=== PATIENT | female | born 1935 ===

== ENCOUNTER 2022-04-19 08:16 | Inpatient (IN) | payer MEDICARE, OTHER ==
[2022-04-19 09:31] LABS: Glucose,Whole Blood 125 mg/dL (70-110)
[2022-04-19] MEDS ORDERED: IPRATROPIUM-ALBUTEROL 3 ML NEB INHALATION PRN (09:35)
[2022-04-19] MEDS ORDERED: NALOXONE 0.4 MG/ML 1 ML VIAL IV PRN (09:36)
[2022-04-19] MEDS ORDERED: SODIUM CHLORIDE 0.9% 1,000 ML IV ONE (09:40)
[2022-04-19] MEDS ORDERED: CISATRACURIUM 2 MG/ML 5 ML VIAL IV ONE ×2 (09:43→09:44)
[2022-04-19] MEDS ORDERED: propofoL 100 ML IV ONE (09:44)
[2022-04-19] MEDS ORDERED: CHLORHEXIDINE GLUCONATE 15 ML CUP MUCOUS MEM SCH (09:45)
[2022-04-19] MEDS ORDERED: LACTATED RINGERS 1,000 ML IV SCH (10:00)
[2022-04-19] MEDS ORDERED: DILTIAZEM DRIP BOLUS FROM BAG 1 MG SOLN IV ONE (10:09)
[2022-04-19] MEDS ORDERED: DILTIAZEM 125 MG in SODIUM CHLORIDE 0.9% 100 ML IV SCH (10:15)
[2022-04-19 10:22] LABS: ABG Base Excess -5.6 mmol/L; ABG HCO3 18 mmol/L (21-25); ABG PCO2 31 mmHg (35-45); ABG PH 7.39 (7.35-7.45); Allen Test Performed? Yes
[2022-04-19 10:32] LABS: ABG PO2 >420 mmHg (83-108)
[2022-04-19 10:44] LABS: Basophils % (A) 0 %; Eosinophils % (A) 0 %; HCT 32.4 % (34.0-46.0); HGB 10.1 gm/dL (11.4-16.0); Hypochromasia Slight; Lymphocytes # (A) 0.7 k/uL (1.0-4.8); Lymphocytes % (A) 7 %; MCH 28.7 pg (25.0-35.0); MCV 92.6 fL (80.0-100.0); Mean Platelet Volume 12.1; Monocytes # (A) 0.8 k/uL (0-1.0); Monocytes % (A) 9 %; Neutrophils # (A) 7.2 k/uL (1.3-7.7); Neutrophils % (A) 80 %; Platelet Count 146 k/uL (150-450); RDW 15.6 % (11.5-15.5); WBC 8.9 k/uL (3.8-10.6)
[2022-04-19 10:51] LABS: Albumin 2.3 g/dL (3.5-5.0); Magnesium 1.4 mg/dL (1.6-2.3); Phosphorus 3.7 mg/dL (2.5-4.5); Potassium 2.9 mmol/L (3.5-5.1); Total Bilirubin 1.1 mg/dL (0.2-1.3); Total Protein 4.2 g/dL (6.3-8.2)
--- NOTE | 2022-04-19 10:52 | XR ---
EXAMINATION TYPE: XR chest 1V portable DATE OF EXAM: 04/19/2022 COMPARISON: NONE HISTORY: Tube placement TECHNIQUE: Single frontal view of the chest is obtained. FINDINGS: There is no focal air space opacity, pleural effusion, or pneumothorax seen. The cardiac silhouette size is within normal limits. The osseous structures are intact. Some large and there is hyperinflation. Postoperative changes. Atherosclerotic change aorta. Diffuse osteopenia. Left-sided central line seen with the tip overlying the SVC. ET tube 5.5 cm above frank. NG tube courses in the left upper quadrant. IMPRESSION: 1. COPD. 2. Cardiomegaly. 3. ET tube 5.5 cm above frank.
--- NOTE | 2022-04-19 10:58 | PCN ---
PROCEDURE NOTE PROCEDURE: Right femoral art line. PREOPERATIVE DIAGNOSES: Hypotension, frequent blood draws, and blood gas monitoring. POSTOPERATIVE DIAGNOSES: Hypotension, frequent blood draws, and blood gas monitoring. CO-SURGEONS: 1. Dr. Matthew. 2. Ruben Rodgers. ARTERIAL LINE PLACEMENT: Indications: Hemodynamic monitoring. A time-out was completed verifying correct patient, procedure, site, positioning, and implant(s) or special equipment if applicable. Marino's test was performed to ensure adequate perfusion. The patient's right groin was prepped and draped in sterile fashion. 1% Lidocaine was used to anesthetize the area. An 18G Arrow arterial line was introduced into the femoral artery. The catheter was threaded over the guide wire and the needle was removed with appropriate pulsatile blood return. Blood loss was minimal. The catheter was then sutured in place to the skin and a sterile dressing applied. Perfusion to the extremity distal to the point of catheter insertion was checked and found to be adequate. The patient tolerated the procedure well and there were no complications. There was no immediate complication. There was good blood return and waveform. The patient tolerated the procedure well. The catheter was sutured in place. The procedure was done at room 264. There was informed consent and universal timeout. MMODL / IJN: [id number] /
[2022-04-19 11:01] LABS: Appearance,Urine Cloudy (Clear); Bacteria,Urine Rare /hpf; Bilirubin,Urine Negative (Negative); Blood,Urine Large (Negative); Color,Urine Yellow; Glucose,Urine (UA) Trace (Negative); Ketones,Urine Trace (Negative); Leukocyte Esterase,Urine Negative (Negative); Nitrite,Urine Negative (Negative); Protein,Urine 2+ (Negative); RBC,Urine >182 /hpf (0-5); Specific Gravity,Urine 1.019 (1.001-1.035); Urobilinogen,Urine <2.0 mg/dL (<2.0); WBC,Urine 169 /hpf (0-5)
--- NOTE | 2022-04-19 11:12 | PCN ---
PROCEDURE NOTE This is a Pulmonary/Critical Care procedure note. PROCEDURE PERFORMED: Left subclavian triple-lumen catheter. PREOPERATIVE DIAGNOSES: Administration of fluids and pressors and hypotension. POSTOPERATIVE DIAGNOSES: Administration of fluids and pressors and hypotension. There were informed consent and universal time-out. OPERATORS: 1. Dr. Dial. 2. Dr. Matthew. 3. Ruben Rodgers, nurse practitioner. There was informed consent. The procedure took place in room 264. We used the left subclavian vein. TRIPLE LUMEN CATHETER PLACEMENT: Indication: Hemodynamic monitoring/intravenous access. A time-out was completed verifying correct patient, procedure, site, positioning, and implant(s) or special equipment if applicable. The patient was placed in a dependent position appropriate for triple lumen catheter placement based on the vein to be cannulated. The patient's left neck was prepped and draped in sterile fashion. 1% lidocaine was used to anesthetize the surrounding skin area. A triple lumen 9F Cordis catheter was introduced into the left subclavian vein using Seldinger technique. The catheter was threaded smoothly over the guide wire and appropriate blood return was obtained. Each lumen of the catheter was evacuated of air and flushed with sterile saline. The catheter was then sutured in place to the skin and a sterile dressing applied. Perfusion to the extremity distal to the point of catheter insertion was checked and found to be adequate. FINDINGS: There was good blood return from all 3 ports. The catheter was sutured into place. A sterile dressing was applied by the nurse. The patient tolerated the procedure well. The tip of the catheter was seen at the junction of the superior vena cava and right atrium. Chest x-ray was obviously ordered. There was no immediate complication. MMODL / IJN: [id number] /
[2022-04-19] MEDS ORDERED: Magnesium Replacement Protocol 1 EACH MISC MISCELLANE PRN (11:16)
[2022-04-19] MEDS ORDERED: Potassium Replacement Protocol 1 EACH MISC MISCELLANE PRN (11:16)
[2022-04-19] MEDS: MAGNESIUM SULFATE-D5W PMX 1 GM in DEXTROSE/WATER 1 100ML.BAG IVPB SCH ×3 (11:30→13:30)
[2022-04-19] MEDS: POTASSIUM CHLORIDE 20 MEQ in WATER FOR INJECTION 1 100ML.BAG IVPB SCH ×2 (11:30→13:30)
[2022-04-19] MEDS ORDERED: ALBUTEROL HFA INHALER INHALATION PRN (11:49)
[2022-04-19] MEDS ORDERED: IPRATROPIUM-ALBUTEROL 3 ML NEB INHALATION SCH (12:00)
[2022-04-19] MEDS ORDERED: ALBUTEROL HFA INHALER INHALATION SCH (12:00)
[2022-04-19] MEDS ORDERED: ARTIFICIAL TEARS-HYPROMELLOSE DROPS 15 ML BTL BOTH EYES PRN (12:36)
--- NOTE | 2022-04-19 12:50 | P.CNPUL ---
History of Present Illness Consult date: 04/19/22 Requesting physician: Domenico Cervantes Reason for consult: dyspnea, hypoxemia, other Chief complaint: Cardiopulmonary arrest. History of present illness: Pulmonary/critical care consult dated 04/19/2022. 86-year-old female who was transferred from the ICU/ER at [facility], to our ICU, for additional critical care management. The patient was admitted to [facility] on April 17 with weakness, and was found to have coronavirus infection. Apparently this morning, the patient became unresponsive, after being given a pill which she may have aspirated on. Initially, she was nancy cardic with heart rate in the 40s and very cyanotic and poorly responsive. Sometime after that she was intubated, and then developed cardiopulmonary arrest. She had CPR for about 6 minutes before there was return of spontaneous circulation. She received a couple liters of fluid, and 3 rounds of e pinephrine. I don't believe she was ever cardioverted or defibrillated. The patient was stabilized there and transferred to our facility. In our facility, a central line and arterial line were placed. Chest x-ray showed cardiomegaly, and an endotracheal tube which was high in the trachea, and was pushed down 2 cm. Current lab data includes a white count of 8.9, hemoglobin 10.1, hematocrit 32.4, and a platelet count of 146,000. Blood gases showed a pO2 that was greater than 420, a pCO2 that was 31, and a pH is 7.39. Sodium 145, potassium 2.9, chlorides 1:15, CO2 21, BUN 42, and creatinine 1.43. Calcium was 7. Troponin was 0.154. Albumin was 2.3. AST was 510 and ALT was 148. Urine was nitrite and leukocyte esterase negative. There was quite a few WBCs and rare bacteria. Urine was cloudy. Current medications are reviewed and included updrafts with albuterol and ipratropium bromide, Cardizem is 7.5 mg an hour, and the usual ICU orders. Review of Systems REVIEW OF SYSTEMS: A true review of systems cannot be obtained as the patient came from [facility], sedated and intubated. She apparently had a cardiopulmonary arrest at their facility. CONSTITUTIONAL: [Negative.] NEUROLOGIC: [ Negative.] HEENT: [ Negative.] CARDIAC: [Negative.] PULMONARY: [Negative.] GI: [Negative.] : [Negative.] RHEUMATOLOGIC: [ Negative.] IMMUNOLOGIC: [ Negative.] ENDOCRINE: [Negative. ] DERMATOLOGIC: [Negative.] Medications and Allergies Home Medications Medication Instructions Recorded Confirmed Type Apixaban [Eliquis] 2.5 mg PO BID 04/19/22 04/19/22 History Donepezil [Aricept] 10 mg PO HS 04/19/22 04/19/22 History Ergocalciferol [Vitamin D2 (1250 1,250 mcg PO Q7D 04/19/22 04/19/22 History Mcg = 53842 Iu)] Fenofibrate,Micronized 200 mg PO DAILY 04/19/22 04/19/22 History [Fenofibrate] Isosorbide Mononitrate ER [Imdur] 60 mg PO DAILY 04/19/22 04/19/22 History Levothyroxine Sodium [Levoxyl] 100 mcg PO DAILY 04/19/22 04/19/22 History Megestrol Acetate 400 mg PO DAILY 04/19/22 04/19/22 History Memantine HCl 10 mg PO BID 04/19/22 04/19/22 History Metoprolol Tartrate 25 mg PO BID 04/19/22 04/19/22 History Sertraline HCl [Zoloft] 50 mg PO DAILY 04/19/22 04/19/22 History Simvastatin [Zocor] 40 mg PO HS 04/19/22 04/19/22 History hydroCHLOROthiazide [Hydrodiuril] 50 mg PO DAILY 04/19/22 04/19/22 History Allergies Allergy/AdvReac Type Severity Reaction Status Date / Time aspirin [From Ecotrin] Allergy Unknown Verified 04/19/22 09:36 Sulfa (Sulfonamide Allergy Unknown Verified 04/19/22 09:36 Antibiotics) Physical Exam Osteopathic Statement: *. No significant issues noted on an osteopathic structural exam other than those noted in the History and Physical/Consult. Vitals: Vital Signs Temp Pulse Resp BP FiO2 04/19/22 11:54 30 04/19/22 10:45 112 H 18 120/71 04/19/22 10:40 97.6 F 130 H 18 117/84 04/19/22 10:33 35 04/19/22 09:39 100 04/19/22 09:20 100 Intake and Output 04/18/22 04/19/22 04/19/22 22:59 06:59 14:59 Intake Total 500 Balance 500 Intake: IV 500 Lactated Ringers 1,000 ml 300 @ 100 mls/hr IV .Q10H KUNAL Rx#:[id number] Magnesium Sulfate-D5w Pmx 100 1 gm In Dextrose/Water 1 100ml.bag @ 100 mls/hr IVPB Q1H KUNAL Rx#: [id number] Potassium Chloride 20 meq 100 In Water For Injection 1 100ml.bag @ 50 mls/hr IVPB Q2H KUNAL Rx#: [id number] Other: Weight 56.4 kg ABP, PAP, CO, CI - Last 8 Hours Arterial Blood Pressure 130/54 Arterial Blood Pressure 119/61 No acute distress, sedated, and intubated, with an orally placed endotracheal tube. HEENT examination is grossly unremarkable. Neck supple. Full range of motion. No adenopathy thyromegaly or neck vein distention. Cardiovascular examination reveals an irregular rhythm and rate. S1-S2 normal. No S3 or S4. No discernible murmur noted. Heart rate 112 bpm. Lungs reveal scattered rhonchi. Breath sounds equal bilaterally. No wheezes. Saturations are 98%. Abdomen soft, without bowel sounds. No masses. Extremities are intact. No clubbing. Acrocyanosis present. Minimal lower extremity edema. Skin is without rash or lesion. Neurologic examination cannot be evaluated at this time. Results - Laboratory Findings CBC and BMP: 04/19/22 10:00 04/19/22 10:00 ABG ABG pH 7.39 (7.35-7.45) 04/19/22 10:14 ABG pCO2 31 mmHg (35-45) L 04/19/22 10:14 ABG pO2 >420 mmHg (83-108) H 04/19/22 10:14 ABG O2 Saturation 100.0 % (94-97) H 04/19/22 10:14 Abnormal lab findings: Abnormal Labs 04/19/22 04/19/22 04/19/22 09:30 09:45 10:00 RBC Hgb Hct RDW Plt Count Lymphocytes # ABG pCO2 ABG pO2 ABG HCO3 ABG O2 Saturation Potassium 2.9 L Chloride 115 H Carbon Dioxide 21 L BUN 42 H Creatinine 1.43 H Glucose 137 H POC Glucose (mg/dL) 125 H Calcium 7.0 L Magnesium 1.4 L AST 510 H ALT 148 H Troponin I Total Protein 4.2 L Albumin 2.3 L Urine Appearance Cloudy H Urine Protein 2+ H Urine Glucose (UA) Trace H Urine Ketones Trace H Urine Blood Large H Urine RBC >182 H Urine WBC 169 H Urine Bacteria Rare H 04/19/22 04/19/22 04/19/22 10:00 10:00 10:14 RBC 3.50 L Hgb 10.1 L Hct 32.4 L RDW 15.6 H Plt Count 146 L Lymphocytes # 0.7 L ABG pCO2 31 L ABG pO2 >420 H ABG HCO3 18 L ABG O2 Saturation 100.0 H Potassium Chloride Carbon Dioxide BUN Creatinine Glucose POC Glucose (mg/dL) Calcium Magnesium AST ALT Troponin I 0.154 H* Total Protein Albumin Urine Appearance Urine Protein Urine Glucose (UA) Urine Ketones Urine Blood Urine RBC Urine WBC Urine Bacteria - Diagnostic Findings Chest x-ray: image reviewed Assessment and Plan Assessment: Acute cardiopulmonary arrest, requiring intubation and mechanical ventilation on 04/19/2022. 6 minutes of cardiopulmonary resuscitation, with eventual return of spontaneous circulation. Patient tested positive for coronavirus. History of hyperlipidemia. History of chronic atrial fibrillation. History of dementia. History of hypothyroidism. History of hypertension. Plan: Plan dated 04/19/2022. The patient had an arterial line placed, and a central line placed. Labs, x- rays, and medications are reviewed. We will continue to follow the patient and make recommendations along the way. The patient will be started on tube feedings. Labs and x-rays will be ordered for the morning. Adjustments to the mechanical ventilator have been made. We will continue to follow the patient make recommendations along the way. Prognosis is certainly guarded. Time with Patient: Greater than 30
[2022-04-19] MEDS ORDERED: NOREPINEPHRINE 4 MG in SODIUM CHLORIDE 0.9% 250 ML IV SCH (13:00)
[2022-04-19 13:06] VITALS: RESP 22
[2022-04-19 13:57] VITALS: BMI 24.3
[2022-04-19] MEDS ORDERED: MORPHINE SULFATE 2 MG/ML SYRINGE IV PRN (14:37)
[2022-04-19] MEDS ORDERED: LORazepam 2 MG/ML INJ IV PRN (14:37)
[2022-04-19] MEDS ORDERED: ATROPINE OPHTH SOLN 1% 5ML BTL SUBLINGUAL PRN (14:37)
[2022-04-19] MEDS ORDERED: MORPHINE SULFATE 10 MG/ML 1ML VIAL IVP ONE (14:37)
[2022-04-19] MEDS ORDERED: MORPHINE SULFATE 4 MG/ML SYRINGE IV PRN (14:37)
[2022-04-19] MEDS ORDERED: MORPHINE SULFATE (100 MG/2 ML) 100 MG in SODIUM CHLORIDE 0.9% 100 ML IV SCH (14:45)
--- NOTE | 2022-04-19 15:59 | P.HPIM ---
History of Present Illness H&P Date: 04/19/22 Chief Complaint: Short of breath This is a 86-year-old patient, follows Dr. Hammad Rodriguez. Chronic stable medical conditions include dementia, anemia, CAD, depression, hyperlipidemia, hypothyroid, B12 deficiency, coronary artery disease with history of bypass. Patient is brought into the [facility] and was there for last 2 days. for being short of breath and cough for last 2 days. Initially was put on 2 L of nasal cannula. Patient then came back positive for COVID. Computed tomography scan did show some cardiomegaly. 2-D echocardiogram showed EF of 40%. Subsequently patient was found to have atrial fibrillation with rapid ventricular rate. Had to be intubated. And transferred over. Initial troponin was less than 0.05 Patient admitted to the ICU here. Was accepted by Dr. Dial other church history teacher. FiO2 30% and a PEEP of 5. Current drips include Cardizem, propofol, epinephrine. Currently no family at the bedside. Review of systems: Patient intubated Past medical history to include: Dementia, anemia, CAD with bypass, depression, hyperlipidemia, hypothyroid, B12 deficiency, coronary bypass Physical examination: VITAL SIGNS: 97.6, 1:30, 18, 117 x 84, GENERAL: Average built, intubated. EYES: Pupils equal. Conjunctiva normal. HEENT: [External appearance of nose and ears normal, oral cavity-ET tube. NECK: JVD unable to assess masses not palpable. HEART: Heart sounds irregular; no edema. LUNGS: Respiratory rate increased decreased breath sounds. ABDOMEN: Soft, nontender, liver spleen not palpable, no masses palpable. PSYCH: Patient sedatedl. MUSCULOSKELETAL:No Clubbing/cyanosis;muscles-grossly intact. OA NEUROLOGICAL: Cranial nerves grossly intact; no facial asymmetry, power and sensation grossly intact. LYMPHATICS: No lymph nodes palpable in the axilla and neck INVESTIGATIONS, reviewed in the clinical context: Testing from [facility] EKG tracing personally reviewed by me-decreased T wavesTiffany fib Computed tomography scan of the chest: Cardiomegaly. Trace effusion. 2-D echocardiogram: EF 40%. Moderate to severe mitral and tricuspid regurgitation. Moderate pulmonary hypertension White count 7.4 hemoglobin 11.1 platelets 179 sodium 148 potassium 4.7 BUN 23 creatinine 1.8. 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 Drips include IV Cardizem, propofol, norepinephrine. Follow with intensiv ist. Prognosis guarded. Medications and Allergies Home Medications Medication Instructions Recorded Confirmed Type Apixaban [Eliquis] 2.5 mg PO BID 04/19/22 04/19/22 History Donepezil [Aricept] 10 mg PO HS 04/19/22 04/19/22 History Ergocalciferol [Vitamin D2 (1250 1,250 mcg PO Q7D 04/19/22 04/19/22 History Mcg = 17926 Iu)] Fenofibrate,Micronized 200 mg PO DAILY 04/19/22 04/19/22 History [Fenofibrate] Isosorbide Mononitrate ER [Imdur] 60 mg PO DAILY 04/19/22 04/19/22 History Levothyroxine Sodium [Levoxyl] 100 mcg PO DAILY 04/19/22 04/19/22 History Megestrol Acetate 400 mg PO DAILY 04/19/22 04/19/22 History Memantine HCl 10 mg PO BID 04/19/22 04/19/22 History Metoprolol Tartrate 25 mg PO BID 04/19/22 04/19/22 History Sertraline HCl [Zoloft] 50 mg PO DAILY 04/19/22 04/19/22 History Simvastatin [Zocor] 40 mg PO HS 04/19/22 04/19/22 History hydroCHLOROthiazide [Hydrodiuril] 50 mg PO DAILY 04/19/22 04/19/22 History Allergies Allergy/AdvReac Type Severity Reaction Status Date / Time aspirin [From Ecotrin] Allergy Unknown Verified 04/19/22 09:36 Sulfa (Sulfonamide Allergy Unknown Verified 04/19/22 09:36 Antibiotics) Physical Exam Vitals: Vital Signs Temp Pulse Resp BP Pulse Ox FiO2 04/19/22 13:00 101 H 103/66 93 L 04/19/22 12:45 110 H 65/43 92 L 04/19/22 12:30 108 H 97/68 92 L 04/19/22 12:15 123 H 22 85/61 92 L 04/19/22 12:00 97.6 F 122 H 22 89/48 92 L 30 04/19/22 11:54 30 04/19/22 11:45 23 94/69 92 L 04/19/22 11:30 124 H 21 91/63 92 L 04/19/22 11:15 123 H 18 116/86 92 L 04/19/22 11:00 72/49 04/19/22 10:45 112 H 18 120/71 04/19/22 10:40 97.6 F 130 H 18 117/84 04/19/22 10:33 35 04/19/22 09:39 100 04/19/22 09:20 100 Intake and Output 04/18/22 04/19/22 04/19/22 22:59 06:59 14:59 Intake Total 556.345 Balance 556.345 Intake: IV 550 Invasive Line 2 10 Invasive Line 3 20 Invasive Line 4 20 Lactated Ringers 1,000 ml 300 @ 100 mls/hr IV .Q10H KUNAL Rx#:[id number] Magnesium Sulfate-D5w Pmx 100 1 gm In Dextrose/Water 1 100ml.bag @ 100 mls/hr IVPB Q1H KUNAL Rx#: [id number] Potassium Chloride 20 meq 100 In Water For Injection 1 100ml.bag @ 50 mls/hr IVPB Q2H KUNAL Rx#: [id number] Intake, IV Titration 6.345 Amount propofoL 1,000 mg In 6.345 Empty Bag 1 bag @ 15 MCG/ KG/MIN 5.076 mls/hr IV . [id number] KUNAL Rx#:[id number] Other: Weight 56.4 kg ABP, PAP, CO, CI - Last 8 Hours Arterial Blood Pressure 109/55 Arterial Blood Pressure 95/51 Arterial Blood Pressure 103/54 Arterial Blood Pressure 104/54 Arterial Blood Pressure 91/46 Arterial Blood Pressure 100/49 Arterial Blood Pressure 107/46 Arterial Blood Pressure 108/50 Arterial Blood Pressure 130/54 Arterial Blood Pressure 119/61 Results CBC & Chem 7: 04/19/22 10:00 04/19/22 10:00 Labs: Abnormal Lab Results - Last 24 Hours (Table) 04/19/22 04/19/22 04/19/22 Range/Units 09:30 09:45 10:00 RBC (3.80-5.40) m/uL Hgb (11.4-16.0) gm/dL Hct (34.0-46.0) % RDW (11.5-15.5) % Plt Count (150-450) k/uL Lymphocytes # (1.0-4.8) k/uL ABG pCO2 (35-45) mmHg ABG pO2 (83-108) mmHg ABG HCO3 (21-25) mmol/L ABG O2 Saturation (94-97) % Potassium 2.9 L (3.5-5.1) mmol/L Chloride 115 H (98-107) mmol/L Carbon Dioxide 21 L (22-30) mmol/L BUN 42 H (7-17) mg/dL Creatinine 1.43 H (0.52-1.04) mg/dL Glucose 137 H (74-99) mg/dL POC Glucose (mg/dL) 125 H (70-110) mg/dL Calcium 7.0 L (8.4-10.2) mg/dL Magnesium 1.4 L (1.6-2.3) mg/dL AST 510 H (14-36) U/L ALT 148 H (4-34) U/L Troponin I (0.000-0.034) ng/mL Total Protein 4.2 L (6.3-8.2) g/dL Albumin 2.3 L (3.5-5.0) g/dL Urine Appearance Cloudy H (Clear) Urine Protein 2+ H (Negative) Urine Glucose (UA) Trace H (Negative) Urine Ketones Trace H (Negative) Urine Blood Large H (Negative) Urine RBC >182 H (0-5) /hpf Urine WBC 169 H (0-5) /hpf Urine Bacteria Rare H (None) /hpf 04/19/22 04/19/22 04/19/22 Range/Units 10:00 10:00 10:14 RBC 3.50 L (3.80-5.40) m/uL Hgb 10.1 L (11.4-16.0) gm/dL Hct 32.4 L (34.0-46.0) % RDW 15.6 H (11.5-15.5) % Plt Count 146 L (150-450) k/uL Lymphocytes # 0.7 L (1.0-4.8) k/uL ABG pCO2 31 L (35-45) mmHg ABG pO2 >420 H (83-108) mmHg ABG HCO3 18 L (21-25) mmol/L ABG O2 Saturation 100.0 H (94-97) % Potassium (3.5-5.1) mmol/L Chloride (98-107) mmol/L Carbon Dioxide (22-30) mmol/L BUN (7-17) mg/dL Creatinine (0.52-1.04) mg/dL Glucose (74-99) mg/dL POC Glucose (mg/dL) (70-110) mg/dL Calcium (8.4-10.2) mg/dL Magnesium (1.6-2.3) mg/dL AST (14-36) U/L ALT (4-34) U/L Troponin I 0.154 H* (0.000-0.034) ng/mL Total Protein (6.3-8.2) g/dL Albumin (3.5-5.0) g/dL Urine Appearance (Clear) Urine Protein (Negative) Urine Glucose (UA) (Negative) Urine Ketones (Negative) Urine Blood (Negative) Urine RBC (0-5) /hpf Urine WBC (0-5) /hpf Urine Bacteria (None) /hpf
[2022-04-19 16:32] VITALS: BP 84/70; PULSE 112; TEMP 98.9
--- NOTE | 2022-04-19 20:31 | P.DS ---
Providers Date of admission: 04/19/22 09:24 Expected date of discharge: 04/19/22 () Attending physician: Domenico Cervantes Consults: 04/19/22 09:33 Consult Physician Stat Consulting Provider: Geoffrey Dial Reason/Comments: ICU management Do you want consulting provider notified?: Already Contacted Placement Type Exists?: Yes Primary care physician: [facility] Course: Chief Complaint: Short of breath This is a 86-year-old patient, follows Dr. Hammad Rodriguez. Chronic stable medical conditions include dementia, anemia, CAD, depression, hyperlipidemia, hypothyroid, B12 deficiency, coronary artery disease with history of bypass. Patient is brought into the [facility] and was there for last 2 days. for being short of breath and cough for last 2 days. Initially was put on 2 L of nasal cannula. Patient then came back positive for COVID. Computed tomography scan did show some cardiomegaly. 2-D echocardiogram showed EF of 40%. Subsequently patient was found to have atrial fibrillation with rapid ventricular rate. Had to be intubated. And transferred over. Initial troponin was less than 0.05 Patient admitted to the ICU here. Was accepted by Dr. Dial other complaint adjuster. FiO2 30% and a PEEP of 5. Current drips include Cardizem, propofol, epinephrine. Currently no family at the bedside. Late in the day. Patient's family made the patient comfort measures. Subsequently patient Past medical history to include: Dementia, anemia, CAD with bypass, depression, hyperlipidemia, hypothyroid, B12 deficiency, coronary bypass INVESTIGATIONS, reviewed in the clinical context: Testing from [facility] EKG tracing personally reviewed by me-decreased T waves, A. fib Computed tomography scan of the chest: Cardiomegaly. Trace effusion. 2-D echocardiogram: EF 40%. Moderate to severe mitral and tricuspid regurgitation. Moderate pulmonary hypertension White count 7.4 hemoglobin 11.1 platelets 179 sodium 148 potassium 4.7 BUN 23 creatinine 1.8. Creatinine was 1.1, 2 days prior Troponin less than 0.05 Cause of COVID-19 Assessment and plan: -New onset of atrial fibrillation with rapid ventricular rate, currently controlled IV Cardizem drip -CAD with a prior history coronary bypass Aspirin -Cardiogenic shock Levo fed drip -Cognitive impairment from late-onset Alzheimer's dementia Aricept, Namenda -Hypothyroid Levoxyl -Essential hypertension Metoprolol -Depression Zoloft -Hyperlipidemia Zocor -COVID-19 with hypoxia Dexamethasone -Acute hypoxic respiratory failure possibly from COVID-19/, patient ventilated assisted FiO2 30 and a PEEP of 5 -Primary osteoarthritis -DO NOT RESUSCITATE Disposition: Patient Plan - Discharge Summary Discharge Rx Participant: No New Discharge Prescriptions: No Action Simvastatin [Zocor] 40 mg PO HS Ergocalciferol [Vitamin D2 (1250 Mcg = 33384 Iu)] 1,250 mcg PO Q7D Memantine HCl 10 mg PO BID Megestrol Acetate 400 mg PO DAILY Levothyroxine Sodium [Levoxyl] 100 mcg PO DAILY hydroCHLOROthiazide [Hydrodiuril] 50 mg PO DAILY Isosorbide Mononitrate ER [Imdur] 60 mg PO DAILY Sertraline HCl [Zoloft] 50 mg PO DAILY Metoprolol Tartrate 25 mg PO BID Fenofibrate,Micronized [Fenofibrate] 200 mg PO DAILY Donepezil [Aricept] 10 mg PO HS Apixaban [Eliquis] 2.5 mg PO BID Discharge Medication List Apixaban [Eliquis] 2.5 mg PO BID 04/19/22 [History] Donepezil [Aricept] 10 mg PO HS 04/19/22 [History] Ergocalciferol [Vitamin D2 (1250 Mcg = 01848 Iu)] 1,250 mcg PO Q7D 04/19/22 [History] Fenofibrate,Micronized [Fenofibrate] 200 mg PO DAILY 04/19/22 [History] Isosorbide Mononitrate ER [Imdur] 60 mg PO DAILY 04/19/22 [History] Levothyroxine Sodium [Levoxyl] 100 mcg PO DAILY 04/19/22 [History] Megestrol Acetate 400 mg PO DAILY 04/19/22 [History] Memantine HCl 10 mg PO BID 04/19/22 [History] Metoprolol Tartrate 25 mg PO BID 04/19/22 [History] Sertraline HCl [Zoloft] 50 mg PO DAILY 04/19/22 [History] Simvastatin [Zocor] 40 mg PO HS 04/19/22 [History] hydroCHLOROthiazide [Hydrodiuril] 50 mg PO DAILY 04/19/22 [History]
[2022-04-19] MEDS ORDERED: METOPROLOL TARTRATE 25 MG TAB PO SCH (21:00)
[2022-04-19] MEDS ORDERED: PANTOPRAZOLE 40 MG/10 ML VIAL IVP SCH (21:00)
[2022-04-19] MEDS ORDERED: APIXABAN 2.5 MG TABLET PO SCH (21:00)
[2022-04-19] MEDS ORDERED: ATORVASTATIN 20 MG TAB PO SCH (21:00)
--- NOTE | 2022-04-20 08:26 | CA ---
Transthoracic Echo Report Name: Chani Mckinney Age: 86 Gender: F : 1935 Exam Date: 04/19/2022 14:33 Exam Location: [facility] Ht (in): 60 Wt (lb): 124 Ordering Physician: Geoffrey Dial DO Attending/Referring Phys: [employer] Caprice Francisco, GREGORIO Procedure CPT: Indications: Post Cardiac Arrest, lv fxn Cardiac Hx: Technical Quality: Fair Contrast 1: Total Dose (mL): Contrast 2: Total Dose (mL): MEASUREMENTS (Male / Female) Normal Values 2D ECHO LV Diastolic Diameter PLAX 3.3 cm 4.2 - 5.9 / 3.9 - 5.3 cm LV Systolic Diameter PLAX 2.9 cm IVS Diastolic Thickness 1.2 cm 0.6 - 1.0 / 0.6 - 0.9 cm LVPW Diastolic Thickness 1.5 cm 0.6 - 1.0 / 0.6 - 0.9 cm LV Relative Wall Thickness 0.8 RV Internal Dim ED PLAX 3.3 cm LA Volume 75.9 cm??? 18 - 58 / 22 - 52 cm??? M-MODE Aortic Root Diameter MM 2.3 cm LA Systolic Diameter MM 5.1 cm LA Ao Ratio MM 2.2 AV Cusp Separation MM 1.6 cm DOPPLER AV Peak Velocity 100.6 cm/s AV Peak Gradient 4.1 mmHg AI Peak Velocity 307.4 cm/s AI Peak Gradient 37.8 mmHg AI Pressure Half Time 534.4 ms LVOT Peak Velocity 67.6 cm/s LVOT Peak Gradient 1.8 mmHg MV E' Velocity 6.2 cm/s TR Peak Velocity 347.7 cm/s TR Peak Gradient 48.4 mmHg Right Ventricular Systolic Press 51.6 mmHg FINDINGS Left Ventricle Mildly increased septal wall thickness. Moderately increased posterior wall thickness. Reduced global left ventricular systolic function. Left ventricular ejection fraction is estimated at 25-30 %. Right Ventricle Mild right ventricular dilatation. Moderate to severe pulmonary hypertension. Right Atrium Severe right atrial dilatation. Left Atrium Severely increased left atrial volume. Mildly increased left atrial area. Mitral Valve Mitral valve thickened. Mild mitral annular calcification. Zuqa-[id number] mitral regurgitation. Aortic Valve Trileaflet aortic valve. Mild aortic regurgitation. Diffuse thickening (sclerosis) of the aortic valve cusps without reduced excursion. Tricuspid Valve Structurally normal tricuspid valve. Lfrhktqj-[id number] tricuspid regurgitation. Pulmonic Valve Mild pulmonic regurgitation. Pericardium No pericardial effusion. Aorta Normal size aortic root and proximal ascending aorta. CONCLUSIONS Severe LV dysfunction with EF between 25-30% [id number] mitral regurgitation Moderate to severe pulmonary hypertension Moderate to severe tricuspid regurgitation Previewed by: Dr. Binu Raymundo MD (Electronically Signed) Final Date: 20 April 2022 08:25
[2022-04-20] MEDS ORDERED: SERTRALINE 50 MG TAB PO SCH (09:00)
[2022-04-20] MEDS ORDERED: LEVOTHYROXINE 100 MCG TAB PO SCH (09:00)
== END 2022-04-19 22:37 | disposition expired | DRG 308 ==
LOC: 2SICU 09:24
PROVIDERS: ADMIT Hospitalist; ATTEND Hospitalist
PROC: 5A1935Z Respiratory Ventilation, Less than 24 Consecutive Hours (ICD-10-PCS; principal; 2022-04-19)
PROC: 0BH17EZ Insertion of Endotracheal Airway into Trachea, Via Natural or Artificial Opening (ICD-10-PCS; 2022-04-19)
PROC: 5A12012 Performance of Cardiac Output, Single, Manual (ICD-10-PCS; 2022-04-19)
PROC: 02HV33Z Insertion of Infusion Device into Superior Vena Cava, Percutaneous Approach (ICD-10-PCS; 2022-04-19)
PROC: 03HY32Z Insertion of Monitoring Device into Upper Artery, Percutaneous Approach (ICD-10-PCS; 2022-04-19)
PROC: 4A133B1 Monitoring of Arterial Pressure, Peripheral, Percutaneous Approach (ICD-10-PCS; 2022-04-19)
PROC: 4A133J1 Monitoring of Arterial Pulse, Peripheral, Percutaneous Approach (ICD-10-PCS; 2022-04-19)
DX: I48.20 Chronic atrial fibrillation, unspecified (principal); J96.01 Acute respiratory failure with hypoxia; J96.90 Respiratory failure, unspecified, unspecified whether with hypoxia or hypercapnia; U07.1 COVID-19; F02.83 Dementia in other diseases classified elsewhere, unspecified severity, with mood disturbance; I46.2 Cardiac arrest due to underlying cardiac condition; J44.9 Chronic obstructive pulmonary disease, unspecified; I95.9 Hypotension, unspecified; D64.9 Anemia, unspecified; G30.1 Alzheimer's disease with late onset; R57.0 Cardiogenic shock; E53.8 Deficiency of other specified B group vitamins; Z79.890 Hormone replacement therapy; E03.9 Hypothyroidism, unspecified; E78.5 Hyperlipidemia, unspecified; F32.A Depression, unspecified; I08.1 Rheumatic disorders of both mitral and tricuspid valves; I10 Essential (primary) hypertension; I27.20 Pulmonary hypertension, unspecified; I25.10 Atherosclerotic heart disease of native coronary artery without angina pectoris; Z66 Do not resuscitate; Z51.5 Encounter for palliative care; Z79.01 Long term (current) use of anticoagulants; Z79.899 Other long term (current) drug therapy; Z95.1 Presence of aortocoronary bypass graft; Z88.2 Allergy status to sulfonamides; Z88.6 Allergy status to analgesic agent
CPT/HCPCS: 71045; 80053; 81001; 82805; 83605; 83735; 84100; 84484; 85025; 86850; 86900; 86901; 87070; 87077; 87086; 87186; 87205; 93306; 94002